=== PATIENT | female | born 1960 | race Caucasian/White ===

== ENCOUNTER 2019-06-22 09:08 | Outpatient (REF) | payer BC, SELFPAY ==
[2019-06-22 22:29] LABS: Anion Gap 9.5 mmol/L (3-11); BUN 14 mg/dL (7-18); CO2 27.5 mmol/L (21.0-32.0); CREATININE 0.72 mg/dL (0.55-1.02); Calculated LDL 147 mg/dL; Chloride 103 mmol/L (98-107); Cholesterol 211 mg/dL (<200); Glucose 116 mg/dL (74-106); HDL Cholesterol 56 mg/dL (40-60); Sodium 140 mmol/L (136-145); Triglyceride 41 mg/dL (<150)
== END 2019-06-22 09:28 ==
LOC: NCHCN 09:08
PROVIDERS: PCP Internal Medicine; Visit Provider Internal Medicine
DX: R73.01 Impaired fasting glucose (principal); I10 Essential (primary) hypertension; Z13.220 Encounter for screening for lipoid disorders
CPT/HCPCS: 80048; 80061

== ENCOUNTER 2019-12-23 08:56 | Outpatient (REF) | payer BC, SELFPAY ==
[2019-12-23 21:46] LABS: Calculated LDL 123 mg/dL (<100); Cholesterol 190 mg/dL (<200); Glucose 108 mg/dL (74-106); HDL Cholesterol 49 mg/dL (40-60); Triglyceride 91 mg/dL (<150)
== END 2019-12-23 09:16 ==
LOC: NCHCN 08:56
PROVIDERS: PCP Internal Medicine; Visit Provider Internal Medicine
DX: Z00.00 Encounter for general adult medical examination without abnormal findings (principal); R73.01 Impaired fasting glucose; I10 Essential (primary) hypertension; F17.200 Nicotine dependence, unspecified, uncomplicated
CPT/HCPCS: 80061; 82947; 83036

== ENCOUNTER 2020-07-04 15:05 | Outpatient (REF) | payer BC, MEDICAID, SELFPAY ==
[2020-07-04 22:20] LABS: Hemoglobin A1C 6.1 % (<5.7)
[2020-07-04 22:29] LABS: Anion Gap 8.8 mmol/L (3-11); BUN 15 mg/dL (7-18); CO2 27.2 mmol/L (21.0-32.0); CREATININE 0.71 mg/dL (0.55-1.02); Calcium 8.9 mg/dL (8.5-10.1); Chloride 103 mmol/L (98-107); Glucose 109 mg/dL (74-106); Potassium 3.7 mmol/L (3.5-5.1); Sodium 139 mmol/L (136-145)
== END 2020-07-04 15:25 ==
LOC: NCHCN 15:05
PROVIDERS: PCP Internal Medicine; Visit Provider Internal Medicine
DX: R73.03 Prediabetes (principal); I10 Essential (primary) hypertension
CPT/HCPCS: 80048; 83036

== ENCOUNTER 2021-07-31 17:09 | Outpatient (REF) | payer BC, SELFPAY ==
[2021-07-31 18:43] LABS: Anion Gap 9.5 mmol/L (3-11); BUN 12 mg/dL (7-18); CO2 28.5 mmol/L (21.0-32.0); CREATININE 0.6 mg/dL (0.55-1.02); Calcium 8.8 mg/dL (8.5-10.1); Calculated LDL 110 mg/dL (<100); Chloride 100 mmol/L (98-107); Cholesterol 187 mg/dL (<200); Glucose 113 mg/dL (74-106); HDL Cholesterol 62 mg/dL (40-60); Sodium 138 mmol/L (136-145); Triglyceride 76 mg/dL (<150)
== END 2021-07-31 17:10 | disposition home or self-care (01) ==
LOC: NCHCN 17:09
PROVIDERS: PCP Internal Medicine; Visit Provider Internal Medicine
DX: R73.03 Prediabetes (principal); I10 Essential (primary) hypertension; E78.5 Hyperlipidemia, unspecified
CPT/HCPCS: 80048; 80061; 83036

== ENCOUNTER 2022-08-01 09:22 | Outpatient (REF) | payer BC, SELFPAY ==
[2022-08-01 16:18] LABS: ALT 26 U/L (14-59); AST 34 U/L (15-37); Albumin 4.2 g/dL (3.4-5.0); Alkaline Phosphatase 113 U/L (46-116); Anion Gap 8.7 mmol/L (3-11); BUN 17 mg/dL (7-18); Bilirubin, Total 0.4 mg/dL (0.2-1.0); CO2 27.3 mmol/L (21.0-32.0); CREATININE 0.8 mg/dL (0.55-1.02); Calcium 9.5 mg/dL (8.5-10.1); Calculated LDL 109 mg/dL (<100); Chloride 101 mmol/L (98-107); Cholesterol 177 mg/dL (<200); Glucose 124 mg/dL (74-106); HDL Cholesterol 58 mg/dL (40-60); Potassium 4.5 mmol/L (3.5-5.1); Sodium 137 mmol/L (136-145); Total Protein 7.4 g/dL (6.4-8.2); Triglyceride 52 mg/dL (<150)
[2022-08-01 16:19] LABS: Hemoglobin A1C 6.1 % (<5.7)
== END 2022-08-01 09:23 | disposition home or self-care (01) ==
LOC: NCHCN 09:22
PROVIDERS: PCP Internal Medicine; Visit Provider Internal Medicine
DX: Z00.00 Encounter for general adult medical examination without abnormal findings (principal); I10 Essential (primary) hypertension; E78.5 Hyperlipidemia, unspecified; R73.03 Prediabetes; K21.9 Gastro-esophageal reflux disease without esophagitis
CPT/HCPCS: 80053; 80061; 83036

== ENCOUNTER 2022-08-08 10:36 | Outpatient (REF) | payer BC, SELFPAY ==
--- NOTE | 2022-08-08 10:00 | PAPFT_PTH ---
PATIENT: Janeth Encarnacion LOC: [facility]#:[id number] AGE/SX: 61/F ROOM: RE08/08/[address]: Sheila Dunn : 1960 BED: DIS: 08/08/2022 SPEC #: [id number] RECD: 08/08/22 13:55 STATUS: KIKA REMiguel #: [id number] NATALIE: 08/08/22 10:[address]: Sheila Dunn DEPT: [facility] Cytology RECD BY: Alicia Lloyd Tissues: 1 - CX/ENDOCX FOR PAP SMEARS Procedures: PAP THIN PREP/[facility] Screening HPV DNA PROBE Comments: [id number]
== END 2022-08-08 10:37 | disposition home or self-care (01) ==
LOC: NCHCN 10:36
PROVIDERS: PCP Internal Medicine; Visit Provider Internal Medicine
DX: Z12.4 Encounter for screening for malignant neoplasm of cervix (principal); Z11.51 Encounter for screening for human papillomavirus (HPV)
CPT/HCPCS: 88142; 87624

== ENCOUNTER 2023-08-12 11:56 | Outpatient (REF) | payer BC, SELFPAY ==
[2023-08-12 14:56] LABS: Anion Gap 9.2 mmol/L (3-11); BUN 15 mg/dL (7-18); CO2 29.8 mmol/L (21.0-32.0); CREATININE 0.8 mg/dL (0.55-1.02); Calcium 9.4 mg/dL (8.5-10.1); Calculated LDL 116 mg/dL (<100); Chloride 101 mmol/L (98-107); Cholesterol 184 mg/dL (<200); Estimated GFR 83.78 (mL/min/1.73m2); Glucose 130 mg/dL (74-106); HDL Cholesterol 50 mg/dL (40-60); Potassium 4.1 mmol/L (3.5-5.1); Sodium 140 mmol/L (136-145); Triglyceride 90 mg/dL (<150)
== END 2023-08-12 11:57 | disposition home or self-care (01) ==
LOC: NCHCN 11:56
PROVIDERS: PCP Internal Medicine; Visit Provider Internal Medicine
DX: E78.5 Hyperlipidemia, unspecified (principal); I10 Essential (primary) hypertension
CPT/HCPCS: 80048; 80061

== ENCOUNTER 2023-08-19 18:02 | Outpatient (REF) | payer BC, SELFPAY ==
[2023-08-19 16:38] LABS: Hemoglobin A1C 6.2 % (<5.7)
== END 2023-08-19 18:03 | disposition home or self-care (01) ==
LOC: NCHCN 18:02
PROVIDERS: PCP Internal Medicine; Referring Provider Internal Medicine; Visit Provider Internal Medicine
DX: R73.03 Prediabetes (principal)
CPT/HCPCS: 83036

== ENCOUNTER 2024-08-17 13:18 | Outpatient (REF) | payer BC, SELFPAY ==
[2024-08-17 14:19] LABS: HCT 37.3 % (36.0-46.0); HGB 11.4 g/dL (11.2-15.7); MCH 27.5 pg (27.0-33.0); MCHC 30.6 % (32.0-36.0); MCV 90 fL (80-95); MPV 10.1 fL (8.0-11.0); Platelet Count 196 10^3/uL (130-400); RBC 4.14 10^6/uL (3.93-5.22); RDW 15.2 % (11.7-14.6); RDW-SD 49.7 fL; WBC 24.97 10^3/uL (4.4-10.8)
[2024-08-17 15:03] LABS: Hemoglobin A1C 6.6 % (<5.7)
[2024-08-17 17:00] LABS: Absolute Neutrophil Count 4.49 10^3/uL (1.2-6.7); Bands % 1 %
[2024-08-17 17:01] LABS: Absolute Lymphocyte Count 19.48 10^3/uL (1.2-3.4); Absolute Monocyte Count 0.75 10^3/uL (0.1-0.8); Atypical Lymphocytes % 58 %; Diff Comment Manual Differential; Other Cells % 1
[2024-08-17 17:03] LABS: RBC Morphology Normal
[2024-08-17 17:55] LABS: ALT 32 U/L (14-59); AST 36 U/L (15-37); Alkaline Phosphatase 136 U/L (46-116); Anion Gap 8.3 mmol/L (3-11); BUN 15 mg/dL (7-18); Bilirubin, Total 0.41 mg/dL (0.2-1.0); CO2 29.7 mmol/L (21.0-32.0); CREATININE 0.8 mg/dL (0.55-1.02); Calcium 9.3 mg/dL (8.5-10.1); Calculated LDL 114 mg/dL (<100); Chloride 103 mmol/L (98-107); Cholesterol 173 mg/dL (<200); Estimated GFR 83.26 (mL/min/1.73m2); Glucose 134 mg/dL (74-106); HDL Cholesterol 36 mg/dL (40-60); Potassium 4.4 mmol/L (3.5-5.1); Sodium 141 mmol/L (136-145); Total Protein 7.4 g/dL (6.4-8.2); Triglyceride 119 mg/dL (<150)
== END 2024-08-17 13:19 | disposition home or self-care (01) ==
LOC: NCHCN 13:18
PROVIDERS: PCP Internal Medicine; Visit Provider Internal Medicine
DX: D72.829 Elevated white blood cell count, unspecified (principal); I10 Essential (primary) hypertension; E78.5 Hyperlipidemia, unspecified; R73.03 Prediabetes
CPT/HCPCS: 80053; 80061; 85027; 83036; 85007

== ENCOUNTER 2024-08-19 10:57 | Outpatient (REF) | payer BC, SELFPAY ==
[2024-08-19 14:45] LABS: HCT 34.1 % (36.0-46.0); HGB 10.4 g/dL (11.2-15.7); MCH 27.9 pg (27.0-33.0); MCHC 30.5 % (32.0-36.0); MCV 91 fL (80-95); MPV 10.1 fL (8.0-11.0); Platelet Count 178 10^3/uL (130-400); RBC 3.73 10^6/uL (3.93-5.22); RDW 15.2 % (11.7-14.6); RDW-SD 50.4 fL; WBC 24.68 10^3/uL (4.4-10.8)
[2024-08-19 15:29] LABS: Vitamin D 25 Total 26.7 ng/mL (30-100)
== END 2024-08-19 10:58 | disposition home or self-care (01) ==
LOC: NCHCN 10:57
PROVIDERS: PCP Internal Medicine; Visit Provider Internal Medicine
DX: R74.8 Abnormal levels of other serum enzymes (principal); D72.829 Elevated white blood cell count, unspecified
CPT/HCPCS: 82306; 85027

== ENCOUNTER 2025-03-01 15:35 | Outpatient (REF) | payer BC, SELFPAY ==
[2025-03-01 21:38] LABS: COMMENT (LAB VIEW ONLY) 171.67 mg/dL; Microalb ug/mg Crea 35.6 ug/mg Cr
== END 2025-03-01 15:36 | disposition home or self-care (01) ==
LOC: NCHCN 15:35
PROVIDERS: PCP Internal Medicine; Visit Provider Internal Medicine
DX: E11.9 Type 2 diabetes mellitus without complications (principal)
CPT/HCPCS: 82043; 82570